=== PATIENT | male | born 1945 | race Caucasian/White ===

== ENCOUNTER 2016-05-08 09:47 | Emergency (ER) | payer OTHER ==
[~2016-05-08] VITALS: Ht 172.7 cm; Wt 104.5 kg
[~2016-05-08 09:47] MED LIST: ALLOPURINOL300 MG PO; ASPIRIN81 M1 PO; CRESTOR40 MG PO; LISINOPRIL10 MG PO; METFORMIN HCL500 MG PO; TOPROL XL100 MG PO
[2016-05-08] MEDS ORDERED: METOPROLOL SUCC25 MG PO (10:02)
[2016-05-08] MEDS ORDERED: ATORVASTATIN CA80 MG PO (10:04)
[2016-05-08] MEDS ORDERED: METFORMIN HCL500 MG PO (10:04)
[2016-05-08] MEDS ORDERED: ALLOPURINOL100 MG PO (10:04)
[2016-05-08] MEDS ORDERED: NORVASC10 MG PO (10:05)
[2016-05-08] MEDS ORDERED: RANITIDINE HCL300 MG PO (10:05)
[2016-05-08] MEDS ORDERED: ASPIR 8181 M1 PO (10:05)
[2016-05-08] MEDS ORDERED: NAPROXEN500 MG PO (10:49)
[2016-05-08] MEDS ORDERED: PREDNISONE20 MG PO (10:49)
[2016-05-08] MEDS ORDERED: PEPCID20 MG PO (10:59)
[2016-05-08 11:04] VITALS: BP 117/52
== END 2016-05-08 11:04 | disposition home or self-care (01) ==
LOC: EME 09:47
DX: T78.40XA Allergy, unspecified, initial encounter (principal); R22.42 Localized swelling, mass and lump, left lower limb; E78.5 Hyperlipidemia, unspecified; I10 Essential (primary) hypertension; R73.03 Prediabetes; Z95.2 Presence of prosthetic heart valve; Z79.84 Long term (current) use of oral hypoglycemic drugs; Z79.82 Long term (current) use of aspirin
CPT/HCPCS: 99281; 99284; J0171; J2930; S0028

== ENCOUNTER 2016-07-24 06:53 | Emergency (ER) | payer OTHER ==
[~2016-07-24] VITALS: Ht 172.7 cm; Wt 103.0 kg
[~2016-07-24 06:53] MED LIST changes: +ALLOPURINOL100 MG PO; +ASPIR 8181 M1 PO; +ATORVASTATIN CA80 MG PO; +METOPROLOL SUCC25 MG PO; +NAPROXEN500 MG PO; +NORVASC10 MG PO; +PEPCID20 MG PO; +PREDNISONE20 MG PO; +RANITIDINE HCL300 MG PO
[2016-07-24] MEDS ORDERED: ZANTAC300 MG PO (08:43)
[2016-07-24] MEDS ORDERED: PREDNISONE50 MG PO (08:43)
[2016-07-24] MEDS ORDERED: ATARAX,VISTARIL25 MG PO (08:43)
[2016-07-24 08:55] VITALS: BP 132/88
== END 2016-07-24 08:57 | disposition home or self-care (01) ==
LOC: EME 06:53
DX: T78.3XXA Angioneurotic edema, initial encounter (principal); T78.40XA Allergy, unspecified, initial encounter; Z95.2 Presence of prosthetic heart valve; I10 Essential (primary) hypertension; E78.5 Hyperlipidemia, unspecified
CPT/HCPCS: 99281; 99285; J1200; J2930; J7040; S0028